=== PATIENT | male | born 1945 | race Asian ===

== ENCOUNTER 2018-09-24 19:33 | Emergency (ER) | payer OTHER ==
[~2018-09-24] VITALS: Ht 177.8 cm; Wt 90.7 kg
[2018-09-24 19:38] VITALS: Ht 177.8 cm; Wt 90.7 kg
[2018-09-24 21:36] VITALS: BP 149/86
== END 2018-09-24 21:36 | disposition home or self-care (01) ==
LOC: ED 19:33
DX: S16.1XXA Strain of muscle, fascia and tendon at neck level, initial encounter (principal); S39.012A Strain of muscle, fascia and tendon of lower back, initial encounter; I10 Essential (primary) hypertension; V43.52XA Car driver injured in collision with other type car in traffic accident, initial encounter; Y93.I9 Activity, other involving external motion; Y92.488 Other paved roadways as the place of occurrence of the external cause; Y99.8 Other external cause status